=== PATIENT | female | born 1985 | race Asian ===

== ENCOUNTER 2018-10-24 11:50 | Inpatient (IN) | payer MEDICAID ==
[2018-10-24 12:29] LABS: ADD MAN DIFF? NO
[2018-10-24] MEDS ORDERED: CARBOPROST 250 MCG INJ IM ×2 (12:30→15:30)
[2018-10-24] MEDS ORDERED: METHYLERGONOVINE 0.2 MG INJ IM ×2 (12:30→15:30)
[2018-10-24] MEDS ORDERED: OXYTOCIN 30 UNITS/LR 500 ML IV ×4 (12:30→15:30)
[2018-10-24] MEDS ORDERED: MISOPROSTOL 200 MCG TAB PR ×2 (12:30→15:30)
[2018-10-24] MEDS: LACTATED RINGER'S 1,000 ML IV ×3 (12:32→22:44)
[2018-10-24 12:34] LABS: BASOPHILS % 0.3 % (0.0-2.0); EOSINOPHILS # 0.1 10^3/ul (0.0-0.5); EOSINOPHILS % 1.8 % (0.0-7.0); HEMATOCRIT 38.7 % (37.0-47.0); HEMOGLOBIN 12.5 g/dl (12.0-16.0); LYMPHOCYTES # 2.8 10^3/ul (0.8-2.9); LYMPHOCYTES % 34.9 % (15.0-51.0); MEAN CORPUSCULAR HEMOGLOBIN 31.2 pg (29.0-33.0); MEAN CORPUSCULAR HGB CONC 32.3 g/dl (32.0-37.0); MEAN CORPUSCULAR VOLUME 96.5 fl (82.0-101.0); MEAN PLATELET VOLUME 10.2 fl (7.4-10.4); MONOCYTE # 0.7 10^3/ul (0.3-0.9); MONOCYTES % 8.4 % (0.0-11.0); NEUTROPHIL # 4.3 10^3/ul (1.6-7.5); PLATELET COUNT 215 10^3/UL (140-415); RED BLOOD COUNT 4.01 10^6/ul (4.20-5.40); RED CELL DISTRIBUTION WIDTH 13.6 % (11.5-14.5)
[2018-10-24 12:50] LABS: INR 0.93; PROTIME 12.6 Sec (11.9-14.9)
[2018-10-24 12:51] LABS: PARTIAL THROMBOPLASTIN TIME 29.7 Sec (23.0-35.0)
[2018-10-24 13:25] LABS: HEPATITIS B SURFACE ANTIGEN NEGATIVE (NEGATIVE)
[2018-10-24] MEDS ORDERED: DEXAMETHASONE 4 MG/ML 1 ML INJ (14:15)
[2018-10-24] MEDS ORDERED: ONDANSETRON 4 MG INJ (14:15)
[2018-10-24] MEDS ORDERED: morphine SULFATE/PF (10 MG/10 ML) INJ (14:28)
[2018-10-24] MEDS ORDERED: PHENYLephrine (100 MCG/ML) 10ML SYG (14:28)
[2018-10-24] MEDS: TRIAMCINOLONE ACET 40 MG/ML INJ INJ ×2 (14:40→19:30)
[2018-10-24] MEDS ORDERED: ZOLPIDEM 5 MG TAB PO (15:00)
[2018-10-24] MEDS ORDERED: NALOXONE (0.4 MG/ML) INJ IV (15:00)
[2018-10-24] MEDS ORDERED: HYDROmorphONE 0.5 MG/0.5 ML SYG IV ×2 (15:00)
[2018-10-24] MEDS ORDERED: ONDANSETRON 4 MG INJ IV (15:00)
[2018-10-24 15:21] LABS: RAPID PLASMA REAGIN NONREACTIVE (NR)
[2018-10-24] MEDS ORDERED: LANOLIN HPA 1 PKT TOP (15:30)
[2018-10-24] MEDS ORDERED: METHYLERGONOVINE 0.2 MG TAB PO (15:30)
[2018-10-24 15:33] LABS: HIV 1&2 ANTIBODY NEGATIVE (NEGATIVE)
[2018-10-24] MEDS: CEFAZOLIN 2 GM/50 ML (PMX) 50 ML IVPB (15:51)
[2018-10-24] MEDS: OXYTOCIN 30 UNITS/LR 500 ML IV (18:38)
[2018-10-24] MEDS: SENNA/DOCUSATE NA (8.6MG/50MG) TAB PO (21:26)
[2018-10-25] MEDS: DIPHENHYDRAMINE 50 MG INJ IV (01:53)
[2018-10-25] MEDS: LACTATED RINGER'S 1,000 ML IV ×3 (06:42→20:06)
[2018-10-25 06:43] LABS: ADD MAN DIFF? NO
[2018-10-25 06:46] LABS: WHITE BLOOD COUNT 13.8 10^3/ul (4.8-10.8)
[2018-10-25 06:46] LABS: BASOPHILS % 0.1 % (0.0-2.0); HEMATOCRIT 33.8 % (37.0-47.0); HEMOGLOBIN 11.3 g/dl (12.0-16.0); LYMPHOCYTES # 1.9 10^3/ul (0.8-2.9); LYMPHOCYTES % 13.6 % (15.0-51.0); MEAN CORPUSCULAR HEMOGLOBIN 31.7 pg (29.0-33.0); MEAN CORPUSCULAR HGB CONC 33.4 g/dl (32.0-37.0); MEAN CORPUSCULAR VOLUME 94.9 fl (82.0-101.0); MEAN PLATELET VOLUME 10.1 fl (7.4-10.4); MONOCYTE # 0.8 10^3/ul (0.3-0.9); MONOCYTES % 5.4 % (0.0-11.0); NEUTROPHIL # 11.1 10^3/ul (1.6-7.5); NEUTROPHILS % 80.4 % (39.0-77.0); PLATELET COUNT 199 10^3/UL (140-415); RED BLOOD COUNT 3.56 10^6/ul (4.20-5.40); RED CELL DISTRIBUTION WIDTH 13.1 % (11.5-14.5)
[2018-10-25 07:22] LABS: ANION GAP 7 (5-13); BLOOD UREA NITROGEN 11 mg/dl (7-20); CALCIUM 8.6 mg/dl (8.4-10.2); CARBON DIOXIDE 24 mmol/L (21-31); CHLORIDE 107 mmol/L (97-110); CREATININE 0.59 mg/dl (0.44-1.00); Estimated GFR > 60 mL/min (>60); GLUCOSE 83 mg/dl (70-220); POTASSIUM 4.1 mmol/L (3.5-5.1); SODIUM 138 mmol/L (135-144)
[2018-10-25] MEDS: SENNA/DOCUSATE NA (8.6MG/50MG) TAB PO ×2 (09:00→20:30)
[2018-10-25] MEDS ORDERED: HYDROCODONE/APAP (5/325) TAB PO ×2 (09:30)
[2018-10-25] MEDS: KETOROLAC 30 MG INJ IV (12:13)
[2018-10-25] MEDS: IBUPROFEN 800 MG TAB PO (17:12)
[2018-10-26] MEDS: IBUPROFEN 800 MG TAB PO ×3 (03:53→19:21)
[2018-10-26] MEDS: LACTATED RINGER'S 1,000 ML IV ×3 (04:06→20:06)
[2018-10-26] MEDS: MAGNESIUM HYDROXIDE 30ML CUP PO (11:00)
[2018-10-26] MEDS: SENNA/DOCUSATE NA (8.6MG/50MG) TAB PO ×2 (11:00→21:10)
[2018-10-26] MEDS: BISACODYL 10 MG SUPP PR (11:00)
[2018-10-27] MEDS: LACTATED RINGER'S 1,000 ML IV (04:06)
[2018-10-27 06:35] LABS: ADD MAN DIFF? NO
[2018-10-27 06:38] LABS: WHITE BLOOD COUNT 9.8 10^3/ul (4.8-10.8)
[2018-10-27 06:38] LABS: BASOPHILS % 0.2 % (0.0-2.0); EOSINOPHILS # 0.1 10^3/ul (0.0-0.5); EOSINOPHILS % 1.2 % (0.0-7.0); HEMATOCRIT 31.7 % (37.0-47.0); HEMOGLOBIN 10.4 g/dl (12.0-16.0); LYMPHOCYTES # 2.5 10^3/ul (0.8-2.9); LYMPHOCYTES % 25.9 % (15.0-51.0); MEAN CORPUSCULAR HEMOGLOBIN 31.4 pg (29.0-33.0); MEAN CORPUSCULAR HGB CONC 32.8 g/dl (32.0-37.0); MEAN CORPUSCULAR VOLUME 95.8 fl (82.0-101.0); MEAN PLATELET VOLUME 9.7 fl (7.4-10.4); MONOCYTE # 0.8 10^3/ul (0.3-0.9); MONOCYTES % 7.7 % (0.0-11.0); NEUTROPHIL # 6.3 10^3/ul (1.6-7.5); NEUTROPHILS % 64.6 % (39.0-77.0); PLATELET COUNT 209 10^3/UL (140-415); RED BLOOD COUNT 3.31 10^6/ul (4.20-5.40); RED CELL DISTRIBUTION WIDTH 13.6 % (11.5-14.5)
[2018-10-27] MEDS: IBUPROFEN 800 MG TAB PO (07:02)
[2018-10-27] MEDS: SENNA/DOCUSATE NA (8.6MG/50MG) TAB PO (09:33)
[2018-10-27] MEDS: DIPHTH/TET/ACEL PERTUSS (ADULT) 0.5 ML VIAL IM* (09:34)
[2018-10-27] MEDS: MEASLES,MUMPS,RUBELLA VACCINE INJ SC* (09:35)
== END 2018-10-27 13:20 | disposition home or self-care (01) | DRG 788 ==
LOC: L-D 11:50 → PP1 18:15
PROVIDERS: Obstetrics & Gynecology
PROC: 10D00Z1 Extraction of Products of Conception, Low, Open Approach (ICD-10-PCS; principal; 2018-10-24 15:30)
DX: O34.211 Maternal care for low transverse scar from previous cesarean delivery (principal); Z3A.39 39 weeks gestation of pregnancy; Z37.0 Single live birth
CPT/HCPCS: 80048; 85025; 85610; 85730; 86592; 86703; 86850; 86900; 86901; 87340; 90715; 99464